=== PATIENT | male | born 1965 | race Caucasian/White ===

== ENCOUNTER 2018-08-03 20:40 | Emergency (ER) | payer OTHER ==
[~2018-08-03 20:40] MED LIST: ISOVUE-370 76%-LOCM 1 ML ONE
[2018-08-03] MEDS ORDERED: Ondansetron PF 4 MG/2 ML Vial ONE ×2 (21:27→22:29)
[2018-08-03] MEDS ORDERED: Morphine 4 MG/ML VIAL ONE ×2 (21:27→22:29)
[2018-08-03 21:47] LABS: #Eosinphils 0.1 thou/uL (0.0-0.7); #Lymphocytes 1.4 thou/uL (1.20-3.40); #Monocytes 0.5 thou/uL (0.11-0.59); #Neutrophils 5.5 thou/uL (1.40-6.50); %Basophils 0.4 % (0.0-1.0); %Eosinophils 1.4 % (0.0-10.0); %Monocytes 6.1 % (0.0-10.0); Hemoglobin 15.3 g/dL (14.0-18.0); Mean Corpuscular Hemoglobin 32.5 pg (27.0-31.0); Mean Corpuscular Volume 95.7 fL (78.0-98.0); Mean Platelet Volume 8.9 fL (7.4-10.4); Platelet Count 224 thou/uL (130-400); RBC Distribution Width 12.7 % (11.5-14.5); Red Blood Cell (RBC) Count 4.69 mill/uL (4.70-6.10); White Blood Cell (WBC) Count 7.5 thou/uL (4.8-10.8)
[2018-08-03 22:04] LABS: ALT (SGPT) 12 U/L (8-55); AST (SGOT) 13 U/L (5-34); Albumin 4.8 g/dL (3.5-5.0); Alkaline Phosphatase 87 U/L (40-150); Anion Gap 16 mmol/L (10-20); BUN (Urea Nitrogen) 10 mg/dL (8.4-25.7); Bilirubin, Total 0.7 mg/dL (0.2-1.2); Calc. Creatinine Clearance 0 mL/min (70-130); Calcium 10.1 mg/dL (7.8-10.44); Carbon Dioxide 22 mmol/L (22-29); Chloride 107 mmol/L (98-107); Estimated GFR-MDRD Greater than 90; Globulin 3.6 g/dL (2.4-3.5); Glucose 88 mg/dL (70-105); Protein, Total 8.4 g/dL (6.0-8.3); Sodium 142 mmol/L (136-145)
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
== END 2018-08-03 23:54 | disposition still patient (30) ==
LOC: ERS 20:40 → EEVIPCON 20:40 → ERS 23:54
DX: S11.90XA Unspecified open wound of unspecified part of neck, initial encounter (principal); G40.909 Epilepsy, unspecified, not intractable, without status epilepticus; W26.8XXA Contact with other sharp object(s), not elsewhere classified, initial encounter
CPT/HCPCS: 36415; 70498; 71260; 80053; 84484; 85025; 93005; 96361; 96374; 96375; J2270; J2405; Q9966